=== PATIENT | female | born 1975 | race Caucasian/White ===

== ENCOUNTER 2018-09-08 17:10 | Emergency (ER) | payer OTHER ==
[~2018-09-08] VITALS: Ht 160 cm; Wt 90.1 kg
[2018-09-08] MEDS ORDERED: KETOROLAC 30 MG/1 ML ONE (17:33)
[2018-09-08] MEDS ORDERED: ASPIRIN 81 MG TABLET CHEW ONE (17:34)
[2018-09-08 17:44] VITALS: BP 169/118
[2018-09-08 17:53] LABS: BASOPHILS # (AUTO) 0.05 x10^3/uL (0-0.1); BASOPHILS % (AUTO) 1 % (0-1); EOSINOPHILS # (AUTO) 0.08 x10^3/uL (0-0.4); EOSINOPHILS % (AUTO) 1 % (1-7); LYMPHOCYTES # (AUTO) 2.76 x10^3/uL (1-3.4); LYMPHOCYTES % (AUTO) 38 % (22-44); MD NO; MEAN CORPUSCULAR HEMOGLOBIN 31.1 pg (27.0-34.8); MEAN CORPUSCULAR HGB CONC 33.1 g/dL (32.4-35.8); MEAN CORPUSCULAR VOLUME 94.2 fL (80-100); MEAN PLATELET VOLUME 7.7 fL (7.4-10.4); MONOCYTES # (AUTO) 0.58 x10^3/uL (0.2-0.8); MONOCYTES % (AUTO) 8 % (2-9); NEUTROPHILS # (AUTO) 3.86 x10^3/uL (1.8-6.8); NEUTROPHILS % (AUTO) 53 % (42-75); PLATELET COUNT 383 x10^3/uL (130-400); RED BLOOD COUNT 4.46 x10^6/uL (3.82-5.3); RED CELL DISTRIBUTION WIDTH 14.3 % (9.6-15.2)
[2018-09-08] MEDS ORDERED: KETOROLAC 30 MG/1 ML IM ONE (18:00)
[2018-09-08] MEDS ORDERED: ASPIRIN 81 MG TABLET CHEW PO ONE (18:00)
[2018-09-08 18:01] LABS: ALBUMIN 3.7 g/dL (3.4-5.0); ANION GAP 10 mmol/L (5-15); CALCIUM 8.7 mg/dL (8.5-10.1); CHLORIDE 107 mmol/L (98-107); CREATININE 0.86 mg/dL (0.55-1.02)
[2018-09-08 18:05] LABS: TROPONIN I < 0.015 ng/mL (0.000-0.045)
== END 2018-09-08 19:58 | disposition home or self-care (01) ==
LOC: ED 17:54
DX: R07.89 Other chest pain (principal); R09.1 Pleurisy; F41.9 Anxiety disorder, unspecified
CPT/HCPCS: 36415; 71046; 80048; 82040; 84484; 85025; 85379; 93005; 96372; 99284; J1885

== ENCOUNTER 2019-08-06 10:31 | Emergency (ER) | payer OTHER ==
[~2019-08-06] VITALS: Ht 157.5 cm; Wt 89.9 kg
--- NOTE | 2019-08-06 10:59 | NUR ---
PT TO ED WITH SOB/RA SPO2 82-89% ON RA, PT PA AT [facility] UC AND TESTED POSTIVE FOR COVID AND FLU ON 07/22 - STARTED ON TAMIFLU AND ZPAC, WORSENING SXS SINCE LAST NIGHT. PT PLACED ON MONITOR - SPO2 98%, PA AT BEDSIDE. CALL LIGHT WITHIN REACH. TECH AT BEDSIDE FOR EKG.
[2019-08-06 11:44] LABS: MEAN CORPUSCULAR HEMOGLOBIN 30.4 pg (27.0-34.8); MEAN CORPUSCULAR HGB CONC 33.6 g/dL (32.4-35.8); MEAN CORPUSCULAR VOLUME 90.5 fL (80-100); MEAN PLATELET VOLUME 7.9 fL (7.4-10.4); PLATELET COUNT 341 x10^3/uL (130-400); RED BLOOD COUNT 4.28 x10^6/uL (3.82-5.3); RED CELL DISTRIBUTION WIDTH 16.7 % (9.6-15.2)
[2019-08-06 11:50] LABS: ALANINE AMINOTRANSFERASE 107 U/L (12-78); ALBUMIN 3.9 g/dL (3.4-5.0); ANION GAP 7 mmol/L (5-15); CALCIUM 8.8 mg/dL (8.5-10.1); CHLORIDE 111 mmol/L (98-107); CREATININE 0.79 mg/dL (0.55-1.02)
[2019-08-06 11:52] LABS: ALKALINE PHOSPHATASE 86 U/L (45-117); BILIRUBIN,TOTAL 0.9 mg/dL (0.2-1.0); TOTAL PROTEIN 7.6 g/dL (6.4-8.2)
[2019-08-06 12:14] LABS: BASOPHILS # (AUTO) 0.06 x10^3/uL (0-0.1); BASOPHILS % (AUTO) 1 % (0-1); EOSINOPHILS # (AUTO) 0.29 x10^3/uL (0-0.4); EOSINOPHILS % (AUTO) 5 % (1-7); LYMPHOCYTES # (AUTO) 1.36 x10^3/uL (1-3.4); LYMPHOCYTES % (AUTO) 22 % (22-44); MD SCAN; MONOCYTES # (AUTO) 0.53 x10^3/uL (0.2-0.8); MONOCYTES % (AUTO) 8 % (2-9); NEUTROPHILS # (AUTO) 4.03 x10^3/uL (1.8-6.8); NEUTROPHILS % (AUTO) 64 % (42-75)
[2019-08-06 12:51] VITALS: BP 158/106
--- NOTE | 2019-08-06 12:52 | NUR ---
TASK RN NOTE: VS RESASSESSED, REVIEWED WITH YANNA WEN. YOUNGPA OK'D DC. PT'S SPO2 PERSISTS >95% ON ROOM AIR. PT GIVEN DC INSTRUCTIONS, PT AMBULATORY WITH DC DESK WITH STEADY GAIT. NADN AT DC.
== END 2019-08-06 12:53 | disposition home or self-care (01) ==
LOC: ED 10:58
DX: U07.1 COVID-19 (principal); R06.00 Dyspnea, unspecified
CPT/HCPCS: 36415; 71045; 80053; 85025; 93005; 99285